=== PATIENT | female | born 1970 | race Caucasian/White ===

== ENCOUNTER 2016-11-08 19:40 | Emergency (ER) | payer BC ==
[2016-11-08] MEDS ORDERED: Ibuprofen 800 MG TAB ONE (19:50)
== END 2016-11-08 20:15 | disposition home or self-care (01) ==
LOC: SCSER 19:40
DX: S13.4XXA Sprain of ligaments of cervical spine, initial encounter (principal); M06.9 Rheumatoid arthritis, unspecified; F32.9 Major depressive disorder, single episode, unspecified; F41.9 Anxiety disorder, unspecified; V89.2XXA Person injured in unspecified motor-vehicle accident, traffic, initial encounter
CPT/HCPCS: 99283

== ENCOUNTER 2017-03-01 10:18 | Outpatient (CLI) | payer BC | END 2017-03-01 10:19 | disposition home or self-care (01) | LOC: BICRAD 10:18 | PROVIDERS: ATTEND Chiropractor | DX: M25.551 Pain in right hip (principal); M25.552 Pain in left hip; M54.5 Low back pain; M16.11 Unilateral primary osteoarthritis, right hip; M47.816 Spondylosis without myelopathy or radiculopathy, lumbar region; M43.16 Spondylolisthesis, lumbar region; Z97.5 Presence of (intrauterine) contraceptive device; Z90.49 Acquired absence of other specified parts of digestive tract | CPT/HCPCS: 72110 ==